=== PATIENT | male | born 1965 ===

== ENCOUNTER → 2023-10-19 09:39 | Outpatient (CLI) | payer OTHER, SELFPAY ==
--- NOTE | ~2023-10-19 | MR_ITS ---
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 Sequences included sagittal and axial T1-weighted SE, axial diffusion-weighted FS SE, a xial T2*-weighted GRE, axial T2-weighted FLAIR, and axial T2-weighted FSE. Apparent diffusion coeffic ient (ADC) maps were created. COMPARISON: None. FINDINGS: There are no areas of restricted diffusion to suggest acute infarction. No intracranial hemorrhage or abnormal intracranial mass lesion. There are scattered areas of nonspecific increased T2-weighted si gnal intensity in the cerebral white matter, predominantly involving the periventricular white matter although there are a few along the spann-white matter junctions in the bilateral frontal and and tong etal regions. There are no intraparenchymal signal abnormalities seen on the other pulse sequences. T he ventricles are symmetric and normal in size. There are no abnormal extra-axial fluid collections. Flow voids are seen in the cerebral arteries on the T2-weighted sequences consistent with their expec niko patency. Right vertebral artery is dominant. Mild mucosal thickening scattered throughout the par anasal sinuses. Visualized orbits and soft tissues are unremarkable. IMPRESSION: 1. Mild scattered white matter T2 hyperintensity which is within normal limits for age and which like ly represents sequela of chronic small vessel ischemic disease. A few of the foci of increased T2 hyp erintensity are seen at the spann-white matter junctions in the bilateral cerebral hemispheres which c an also be seen acutely in the setting of diffuse axonal injury. Correlation with any prior outside i maging would be helpful to assess whether any of the lesions are new. There is however no evident ass ociated hemorrhage or microhemorrhage to more specifically suggest acute axonal injury. Reviewed, dictated and finalized at location A. ANALYST IMPRESSION: 1. Mild scattered white matter T2 hyperintensity which is within normal limits for age and which likely represents sequela of chronic small vessel ischemic di sease. A few of the foci of increased T2 hyperintensity are seen at the spann-wh ite matter junctions in the bilateral cerebral hemispheres which can also be se en acutely in the setting of diffuse axonal injury. Correlation with any prior outside imaging would be helpful to assess whether any of the lesions are new. There is however no evident associated hemorrhage or microhemorrhage to more sp ecifically suggest acute axonal injury.
== END ==
DX: S06.2X1A Diffuse traumatic brain injury with loss of consciousness of 30 minutes or less, initial encounter (principal); X58.XXXA Exposure to other specified factors, initial encounter
CPT/HCPCS: 70551